=== PATIENT | male | born 1975 | race Caucasian/White ===

== ENCOUNTER 2019-01-24 13:43 | Emergency (ER) | payer SELFPAY ==
[~2019-01-24] VITALS: Ht 175 cm; Wt 72.0 kg
--- NOTE | 2019-01-24 14:02 | ED Upper Extremity ---
General Chief Complaint: Upper Extremity Stated Complaint: WOUND ON RT INDEX FINGER Nursing Triage Note: PT HAS REDNESS AND SX OF INFECTION ON R HAND THUMB, FIRST FINGER AND THIRD FINGER KNUCKLE AREA. PT STATES WAS IN HOSP IN [facility] WALKED OUT TODAY. HAS HAD FEVER AND BEEN ON ANTI BIOTICS IV Nursing Sepsis Screen: Possible Sepsis Risk Source: patient Exam Limitations: no limitations History of Present Illness Date Seen by Provider: Jan 24, 2019 Time Seen by Provider: 14:00 Initial Comments redness and swelling to dorsal right hand over 2nd mcp joint. Was admitted there 2 days ago and has been on IV vancomycin without improvement in symptoms so he signed out AGAINST MEDICAL ADVICE today and came here. Onset: just prior to arrival Severity: moderate Pain/Injury Location: left 2nd finger Method of Injury: unknown Modifying Factors: Worse With Movement Allergies and Home Medications Allergies Coded Allergies: Penicillins (Verified Allergy, Unknown, 01/24/19) amoxicillin (Verified Allergy, Unknown, 01/24/19) clavulanic acid (Verified Allergy, Unknown, 01/24/19) codeine (Verified Allergy, Unknown, 01/24/19) Uncoded Allergies: SULFA (Allergy, Unknown, 01/24/19) Home Medications No Active Prescriptions or Reported Meds Patient Home Medication List Home Medication List Reviewed: Yes Review of Systems Constitutional: see HPI EENTM: see HPI Respiratory: no symptoms reported Cardiovascular: no symptoms reported Genitourinary: no symptoms reported Musculoskeletal: see HPI Skin: no symptoms reported Psychiatric/Neurological: No Symptoms Reported Past Aqfmzyk-Mhoayd-Dbaeyb Hx Patient Social History Alcohol Use: Denies Use Recreational Drug Use: No Smoking Status: Current Everyday Smoker Type Used: Cigarettes Recent Foreign Travel: No Contact w/Someone Who Travel: No Recent Infectious Disease Expo: No Recent Hopitalizations: Yes (INFECTION R HAND) Past Medical History Surgeries: Yes Lobectomy Respiratory: No Cardiac: Yes (IRREGULAR MED) Neurological: No Genitourinary: No Gastrointestinal: No Musculoskeletal: No Endocrine: Yes Diabetes, Non-Insulin dep Cancer: No Psychosocial: No Integumentary: No Physical Exam Vital Signs Vital Signs - First Documented 01/24/19 13:48 Temp 36.9 Pulse 99 Resp 18 B/P (MAP) 169/109 (129) Pulse Ox 92 Capillary Refill : Less Than 3 Seconds Height, Weight, BMI Height: '" Weight: lbs. oz. kg; 23.00 BMI Method: General Appearance: WD/WN, no apparent distress HEENT: PERRL/EOMI, normal ENT inspection Neck: non-tender, full range of motion Respiratory: no respiratory distress, no accessory muscle use Shoulder: normal inspection, non-tender Elbow/Forearm: normal inspection, non-tender Wrist: Yes normal inspection, Yes non-tender Hand: Right, swelling Neurologic/Psychiatric: alert, normal mood/affect, oriented x 3 Skin: normal color (fluctuant swelling and erythema over the dorsal aspect of the proximal phalanx second finger and distal aspect of the second metacarpal), warm/dry Procedures/Interventions I&D : Blade Size: 11 Packing/Drain: Idoform 1/ Progress Over the dorsal aspect of the second knuckle right hand is a large fluctuant area. This was anesthetized with 1% lidocaine without epinephrine. 11 blade scalpel was then used to open up this area of fluctuance, large amount of free material was expressed. Wound cavity was then irrigated with 60 cc of chlorhe xidine/saline solution then packed with 1/4 inch plain gauze covered with gauze. Progress/Results/Core Measures Results/Orders My Orders Orders - BRETT WALTERS APRN Wound Culture (01/24/19 13:55) Vital Signs/I&O 01/24/19 13:48 Temp 36.9 Pulse 99 Resp 18 B/P (MAP) 169/109 (129) Pulse Ox 92 Blood Pressure Mean: 129 POS Departure Communication (Admissions) He does not want to stay in the hospital, obviously there is a potential for extensor tenosynovitis here, we will discharge him to home with packing in place, he can come back tomorrow to have the packing replaced or removed and wound reevaluated. He agrees with this plan. I'll put him on Keflex and Bactrim he would like to use [facility] in [place]. Impression Primary Impression: Abscess of finger Qualified Codes: L02.511 - Cutaneous abscess of right hand Disposition: HOME, SELF-CARE Condition: Stable Departure-Patient Inst. Decision time for Depature: 14:46 Referrals: AUBREY PINA MD, MARK E DO NO,LOCAL PHYSICIAN (PCP) Primary Care Physician JENN BECKHAM MD, ROBERT F DO ZAFUTA, MICHAEL P MD Patient Instructions: Skin Abscess Add. Discharge Instructions: 1. Return tomorrow for wound check and packing change. Return to ER before then for worsening redness pain fevers or other concerns. Leave this dressing in place until tomorrow. Take the antibiotics as directed starting today. I have sent them to [facility] in [facility] Sulfamethoxazole/Trimethoprim (Bactrim Ds Tablet) 1 Each Tablet 1 EACH PO BID, #14 TAB Prov: BRETT WALTERS APRN 01/24/19 Cephalexin (Keflex) 500 Mg Capsule 500 MG PO QID, #28 CAP Prov: BRETT WALTERS APRN 01/24/19 BRETT WALTERS APRN Jan 24, 2019 14:02 POS
[2019-01-24] MEDS ORDERED: CEPH-507 PO (14:50)
[2019-01-24] MEDS ORDERED: SULF1TAB35 PO (14:50)
[2019-01-24 14:59] VITALS: BP 154/99
== END 2019-01-24 14:58 | disposition home or self-care (01) ==
LOC: EDUNIT# 13:43 → ER 13:45
DX: L02.511 Cutaneous abscess of right hand (principal); E11.9 Type 2 diabetes mellitus without complications; F17.210 Nicotine dependence, cigarettes, uncomplicated; Z88.0 Allergy status to penicillin; Z88.1 Allergy status to other antibiotic agents; Z88.2 Allergy status to sulfonamides; Z88.5 Allergy status to narcotic agent
CPT/HCPCS: 10061; 87070; 87077; 87186; 87205

== ENCOUNTER 2019-01-25 11:24 | Emergency (ER) | payer SELFPAY ==
[~2019-01-25] VITALS: Ht 172 cm; Wt 71.0 kg
[~2019-01-25 11:24] MED LIST: CEPH-507 PO; SULF1TAB35 PO
--- NOTE | 2019-01-25 12:04 | ED Integumentary General ---
General Chief Complaint: Skin/Wound Problems Stated Complaint: WOUND CHECK Nursing Triage Note: HERE FOR WOUND CHECK RIGHT HAND. WAS SEEN YESTERDAY. Source: patient Exam Limitations: no limitations History of Present Illness Date Seen by Provider: Jan 25, 2019 Time Seen by Provider: 11:50 Initial Comments 43 year old male who presents to the ER for repacking of I&D of right hand. He reports that he is taking his abx that were prescribed yesterday. Timing/Duration: yesterday Associated Symptoms: denies symptoms Allergies and Home Medications Allergies Coded Allergies: Penicillins (Verified Allergy, Unknown, 01/24/19) amoxicillin (Verified Allergy, Unknown, 01/24/19) clavulanic acid (Verified Allergy, Unknown, 01/24/19) codeine (Verified Allergy, Unknown, 01/24/19) Uncoded Allergies: SULFA (Allergy, Unknown, 01/24/19) Home Medications Cephalexin 500 Mg Capsule, 500 MG PO QID Prescribed by: BRETT WALTERS on 01/24/19 1450 Sulfamethoxazole/Trimethoprim 1 Each Tablet, 1 EACH PO BID Prescribed by: BRETT WALTERS on 01/24/19 1450 Patient Home Medication List Home Medication List Reviewed: Yes Review of Systems Review of Systems Constitutional: see HPI; No chills, No fever Skin: see HPI, other (abscess to right hand at the knuckle of 2nd finger.) All Other Systems Reviewed Negative Unless Noted: Yes Past Htzxsxt-Tuyzfx-Dgadlg Hx Past Med/Social Hx: Reviewed Nursing Past Med/Soc Hx Patient Social History Alcohol Use: Denies Use Recreational Drug Use: No Smoking Status: Current Everyday Smoker Type Used: Cigarettes Recent Foreign Travel: No Contact w/Someone Who Travel: No Recent Infectious Disease Expo: No Recent Hopitalizations: Yes (INFECTION R HAND) Past Medical History Surgeries: Yes Lobectomy Respiratory: No Cardiac: Yes (IRREGULAR MED) Neurological: No Genitourinary: No Gastrointestinal: No Musculoskeletal: No Endocrine: Yes Diabetes, Non-Insulin dep Cancer: No Psychosocial: No Integumentary: No Family Medical History Reviewed Nursing Family Hx Physical Exam Vital Signs Vital Signs - First Documented 01/25/19 11:39 Temp 37.0 Pulse 98 Resp 16 B/P (MAP) 161/98 (119) Pulse Ox 99 O2 Delivery Room Air Capillary Refill : Less Than 3 Seconds General Appearance: WD/WN, no apparent distress Cardiovascular: normal peripheral pulses, regular rate, rhythm, no edema, no gallop, no JVD, no murmur Respiratory: chest non-tender, lungs clear, normal breath sounds, no respiratory distress, no accessory muscle use Skin: normal color, warm/dry Skin Problem Location: upper extremities Skin Problem Character: erythema (surrounding the wound opening of the abscess to the right hand. ) Procedures/Interventions I&D : I & D Procedure: Wound Packing Packing/Drain: Idoform 03/27 (2 inch) Progress Wound was irrigated with 50cc of NS and betasept and repacked with 1/4inch Iodaform. 2inches. Progress/Results/Core Measures Results/Orders Vital Signs/I&O 01/25/19 01/25/19 11:39 12:16 Temp 37.0 37.0 Pulse 98 98 Resp 16 16 B/P (MAP) 161/98 (119) 161/98 (119) Pulse Ox 99 99 O2 Delivery Room Air Blood Pressure Mean: 119 POS Departure Impression Primary Impression: Abscess Disposition: 01 HOME, SELF-CARE Condition: Stable/Unchanged Departure-Patient Inst. Decision time for Depature: 12:03 Referrals: NO,LOCAL PHYSICIAN (PCP/Family) Primary Care Physician Patient Instructions: LOCAL PHYSICIAN LIST, Skin Abscess Add. Discharge Instructions: Continue antibiotics as prescribed. Return back tomorrow for wound repacking. If the dressing should become saturated with drainage or soiled please change dressing. Return back to the emergency room for worsening symptoms or concerns as needed. Follow-up and establish with a primary care provider. All discharge instructions reviewed with patient and/or family. Voiced understanding. SILVIA QIU Jan 25, 2019 12:04 POS
[2019-01-25 12:16] VITALS: BP 161/98
== END 2019-01-25 12:16 | disposition home or self-care (01) ==
LOC: EDUNIT# 11:24 → ER 11:25
DX: L02.511 Cutaneous abscess of right hand (principal); E11.9 Type 2 diabetes mellitus without complications; F17.210 Nicotine dependence, cigarettes, uncomplicated; Z88.0 Allergy status to penicillin; Z88.1 Allergy status to other antibiotic agents; Z88.5 Allergy status to narcotic agent; Z88.2 Allergy status to sulfonamides

== ENCOUNTER 2019-01-26 10:52 | Emergency (ER) | payer SELFPAY ==
[~2019-01-26] VITALS: Ht 172.7 cm; Wt 63.6 kg
--- NOTE | 2019-01-26 11:45 | ED Suture Removal/Wound Check ---
Suture/Wound Re-check General Appearance: WD/WN, no apparent distress Skin Exam: warm/dry, other (erythema to the hand especially around the second finger and proximal although much better than previous per the patient and nurse that had seen him previously) Comments Here with wound check. Improving overall per the patient. Dressing removed and shows packing in place with surrounding erythema to I&D site at the second MTP. This was flushed with copious amounts of saline and repacked with quarter inch plain packing and covered with nonstick and 4 x 4 dressings and secured with rolled gauze and tape. Tolerated dressing change well with no complications. Culture is pending but does show staph aureus. He has been on clindamycin and will start cephalexin today as the pharmacy did not have it. Denies fever or chills. Discharged with return precautions. Patient verbalize understanding instructions and agreement with plan. Physical Exam Vital Signs Vital Signs - First Documented 01/26/19 11:00 Temp 36.9 Pulse 85 Resp 17 B/P (MAP) 148/83 Pulse Ox 98 O2 Delivery Room Air Capillary Refill : General Appearance: WD/WN, no apparent distress Cardiovascular: regular rate, rhythm, no murmur Respiratory: lungs clear, normal breath sounds Departure Impression Primary Impression: Wound check, abscess Disposition: 01 HOME, SELF-CARE Condition: Improved Departure-Patient Inst. Decision time for Depature: 11:42 Referrals: NO,LOCAL PHYSICIAN (PCP/Family) Primary Care Physician Patient Instructions: Wound Incision and Drainage (DC) Add. Discharge Instructions: All discharge instructions reviewed with patient and/or family. Voiced understanding. Return tomorrow between 10:30 and 11:30 for recheck and further evaluation. Keep dressing in place unless it becomes soiled. You may replace the top dressing with the supplies given. Continue antibiotics as prescribed. Return for worse pain, swelling, increasing redness, fevers or other concerns as needed. JUAN R JUDD MD Jan 26, 2019 11:45 POS
[2019-01-26 12:17] VITALS: BP 148/83
[2019-01-27] MEDS ORDERED: MINO100C2 PO (11:08)
== END 2019-01-26 12:18 | disposition home or self-care (01) ==
LOC: EDUNIT# 10:52 → ER 10:53
DX: L02.511 Cutaneous abscess of right hand (principal)
CPT/HCPCS: 99282

== ENCOUNTER 2019-01-27 10:39 | Emergency (ER) | payer SELFPAY ==
[~2019-01-27] VITALS: Ht 172.2 cm; Wt 63.6 kg
--- NOTE | 2019-01-27 10:55 | ED Integumentary General ---
General Chief Complaint: Skin/Wound Problems Stated Complaint: WOUND CHECK Source: patient Exam Limitations: no limitations History of Present Illness Date Seen by Provider: Jan 27, 2019 Time Seen by Provider: 10:53 Initial Comments Abscess over the right second dorsally a few days ago, he left Hospital after Receiving Vancomycin IV for 2 Days, Signed out AGAINST MEDICAL ADVICE and Came Here. We Did Incision and Drainage, Wound Culture Placed Him on Bactrim and Keflex. Timing/Duration: constant, week, other (getting better) Severity: mild Associated Symptoms: denies symptoms Allergies and Home Medications Allergies Coded Allergies: Penicillins (Verified Allergy, Unknown, 01/24/19) amoxicillin (Verified Allergy, Unknown, 01/24/19) clavulanic acid (Verified Allergy, Unknown, 01/24/19) codeine (Verified Allergy, Unknown, 01/24/19) Uncoded Allergies: SULFA (Allergy, Unknown, 01/24/19) Home Medications Cephalexin 500 Mg Capsule, 500 MG PO QID Prescribed by: BRETT WALTERS on 01/24/19 1450 Minocycline HCl 100 Mg Capsule, 100 MG PO BID Prescribed by: BRETT WALTERS on 01/27/19 1108 Sulfamethoxazole/Trimethoprim 1 Each Tablet, 1 EACH PO BID Prescribed by: BRETT WALTERS on 01/24/19 1450 Patient Home Medication List Home Medication List Reviewed: Yes Review of Systems Review of Systems Constitutional: see HPI; No chills, No fever EENTM: see HPI Respiratory: no symptoms reported Cardiovascular: no symptoms reported Genitourinary: no symptoms reported Musculoskeletal: no symptoms reported Skin: see HPI Psychiatric/Neurological: No Symptoms Reported Endocrine: No Symptoms Reported Past Bululrn-Flrpnx-Jxdhvt Hx Patient Social History Type Used: Cigarettes Recent Foreign Travel: No Contact w/Someone Who Travel: No Recent Hopitalizations: Yes (INFECTION R HAND) Past Medical History Surgeries: Yes Lobectomy Respiratory: No Cardiac: Yes (IRREGULAR MED) Neurological: No Genitourinary: No Gastrointestinal: No Musculoskeletal: No Endocrine: Yes Diabetes, Non-Insulin dep Cancer: No Psychosocial: No Integumentary: No Physical Exam Vital Signs Vital Signs - First Documented Capillary Refill : General Appearance: WD/WN, no apparent distress Respiratory: no respiratory distress, no accessory muscle use Neurologic/Psychiatric: alert, normal mood/affect, oriented x 3 Skin: normal color, warm/dry Skin Problem Location: upper extremities Skin Problem Character: other (the erythema and swelling over the dorsal aspects of the right hand is improving significantly, continues to have some drainage, I did repack this today, he then removed tomorrow and leave. Based on culture and sensitivity are prescribed minocycline.) Progress/Results/Core Measures Results/Orders Vital Signs/I&O 01/27/19 01/27/19 01/27/19 10:50 10:50 11:08 Temp 36.9 36.9 [id number] Pulse 77 77 77 Resp 15 15 15 B/P (MAP) 160/98 (118) 160/98 160/98 (118) Pulse Ox 99 99 99 O2 Delivery Room Air Room Air Room Air Departure Impression Primary Impression: Abscess of hand Disposition: HOME, SELF-CARE Condition: Stable Departure-Patient Inst. Decision time for Depature: 10:54 Referrals: NO,LOCAL PHYSICIAN (PCP/Family) Primary Care Physician Patient Instructions: Wound Care (DC) Add. Discharge Instructions: 1. Change the dressing as needed. Follow-up with orthopedics of your choosing. Continue the antibiotics. Since this is improving, You do not need to return to the emergency room for any additional wound checks unless you have some concern about increasing redness fever worsening pain All discharge instructions reviewed with patient and/or family. Voiced understanding. Scripts Minocycline HCl (Minocycline HCl) 100 Mg Capsule 100 MG PO BID, #14 CAP Prov: BRETT WALTERS APRN 01/27/19 BRETT WALTERS APRN Jan 27, 2019 10:55 POS
[2019-01-27 11:08] VITALS: BP 160/98
[2019-01-27] MEDS ORDERED: MINO100C2 PO (11:08)
--- NOTE | 2019-01-27 11:08 | NUR ---
Wound examined and redressed by S[place]iz.
== END 2019-01-27 11:11 | disposition home or self-care (01) ==
LOC: EDUNIT# 10:39 → ER 10:40
DX: L02.511 Cutaneous abscess of right hand (principal); E11.9 Type 2 diabetes mellitus without complications; Z88.0 Allergy status to penicillin; Z88.1 Allergy status to other antibiotic agents; Z88.5 Allergy status to narcotic agent; Z88.2 Allergy status to sulfonamides
CPT/HCPCS: 99282